=== PATIENT | female | born 1990 | race Caucasian/White ===

== ENCOUNTER 2019-07-02 05:46 | Inpatient (IN) | payer OTHER ==
[2019-07-02] MEDS ORDERED: Acetaminophen 500 MG TAB PO PRN (06:11)
[2019-07-02] MEDS ORDERED: Docusate 100 MG CAP PO PRN (06:11)
[2019-07-02] MEDS ORDERED: Diphenoxylate HCl/Atropine Tablet PO PRN ×2 (06:11)
[2019-07-02] MEDS ORDERED: Promethazine HCl 25 MG/ML VIAL IM PRN ×2 (06:11→08:40)
[2019-07-02] MEDS ORDERED: Ibuprofen 800 MG TAB PO PRN (06:11)
[2019-07-02] MEDS ORDERED: Misoprostol 200 MCG TAB PR PRN (06:11)
[2019-07-02] MEDS ORDERED: Lidocaine 1% (PF) 30 ML VIAL SC PRN (06:11)
[2019-07-02] MEDS ORDERED: Butorphanol Tartrate 1 MG/ML VIAL SLOW IVP PRN (06:11)
[2019-07-02] MEDS ORDERED: HYDROcodone/Acetaminophen 5/325 mg Tablet PO PRN ×2 (06:11)
[2019-07-02] MEDS ORDERED: Ondansetron PF 4 MG/2 ML Vial IVP PRN ×3 (06:11→14:22)
[2019-07-02] MEDS ORDERED: NS w/ Oxytocin 10 units 500 ML IV SCH ×2 (06:11)
[2019-07-02] MEDS ORDERED: NS / Oxytocin 40 units/1000ml 1,000 ML IV PRN (06:11)
[2019-07-02] MEDS ORDERED: hydrALAZINE 20 MG/ML VIAL SLOW IVP PRN ×2 (06:11→14:22)
[2019-07-02 06:42] LABS: Hemoglobin 12.2 g/dL (12.0-16.0); Mean Corpuscular HGB CONC 34.5 g/dL (32.0-36.0); Mean Corpuscular Hemoglobin 32.1 pg (27.0-31.0); Mean Corpuscular Volume 92.9 fL (78.0-98.0); Mean Platelet Volume 8.1 fL (7.4-10.4); Platelet Count 162 thou/uL (130-400); RBC Distribution Width 12.5 % (11.5-14.5); White Blood Cell (WBC) Count 8.7 thou/uL (4.8-10.8)
[2019-07-02 06:49] VITALS: BMI 29.2
[2019-07-02] MEDS: Lactated Ringer's 1,000 ML IV SCH ×2 (06:50→15:22)
[2019-07-02 07:21] LABS: HBSAg Index 0.25 S/CO (0-0.99); Hep B Surf Ag Non-Reactive S/CO (NonReactive); Syphilis Antibody Nonreactive (Nonreactive); Syphilis Antibody Index 0.04 S/CO (<1.00 Non-Reactive)
[2019-07-02] MEDS ORDERED: Fentanyl 4 mcg/Bup 0.1% Cadd 100 ML ONE ×2 (07:48→13:51)
[2019-07-02] MEDS ORDERED: Bupivacaine 0.5% 10 ML VIAL ONE (08:15)
[2019-07-02] MEDS ORDERED: Fentanyl 100 MCG/2 ML VIAL ONE (08:15)
[2019-07-02] MEDS ORDERED: Bupivacaine 0.25% 10 ML VIAL EPIDURAL SCH (08:40)
[2019-07-02] MEDS ORDERED: EPHEDRINE 25 MG/5 ML SYRINGE SLOW IVP PRN (08:40)
[2019-07-02] MEDS ORDERED: Naloxone HCl 0.4 mg/ml Vial IVP PRN ×2 (08:40)
[2019-07-02] MEDS ORDERED: Lactated Ringer's 500 ML IV PRN (08:40)
[2019-07-02] MEDS ORDERED: Fentanyl 100 MCG/2 ML VIAL I-THECAL ONE (08:40)
[2019-07-02] MEDS ORDERED: Acetaminophen 325 MG TAB PO PRN (08:40)
[2019-07-02] MEDS ORDERED: diphenhydrAMINE 50 MG/ML VIAL IVP PRN (08:40)
[2019-07-02] MEDS ORDERED: Communication Order-Pharmacy FS PRN (08:45)
[2019-07-02] MEDS ORDERED: Fentanyl 4 mcg/Bupivacaine 0.1% Cassette 100 ML EPIDURAL SCH (08:45)
[2019-07-02] MEDS ORDERED: Calcium Carbonate 500 MG ChewTAB PO PRN (09:52)
[2019-07-02] MEDS ORDERED: NS / Oxytocin 40 units/1000ml 1,000 ML ONE (13:49)
[2019-07-02] MEDS ORDERED: Lidocaine 1% (PF) 30 ML VIAL ONE (13:49)
[2019-07-02] MEDS ORDERED: Misoprostol 200 MCG TAB VAG PRN (14:22)
[2019-07-02] MEDS ORDERED: Benzocaine-Menthol 82.5 ML CAN TOP PRN (14:22)
[2019-07-02] MEDS ORDERED: diphenhydrAMINE 25 MG CAP PO PRN (14:22)
[2019-07-02] MEDS ORDERED: Lanolin Ointment 7 GM TUBE TOP PRN (14:22)
[2019-07-02] MEDS ORDERED: Preparation H Ointment 28 GM TUBE PR PRN (14:22)
[2019-07-02] MEDS ORDERED: Zolpidem Tartrate 5 MG TAB PO PRN (14:22)
[2019-07-02] MEDS ORDERED: Adacel (T-DAP) 0.5 ML SYRINGE IM ONE (14:22)
[2019-07-02] MEDS ORDERED: Milk Of Magnesia 30 ML UDCUP PO PRN (14:22)
[2019-07-02] MEDS ORDERED: Bisacodyl 10 MG SUPP PR PRN (14:22)
[2019-07-02] MEDS ORDERED: Acetaminophen/Codeine 30-300mg Tablet PO PRN (14:22)
[2019-07-02] MEDS ORDERED: NS / Oxytocin 40 units/1000ml 1,000 ML IV SCH (14:30)
[2019-07-02] MEDS: Acetaminophen/Codeine 30-300mg Tablet PO PRN ×2 (17:38→23:01)
[2019-07-02] MEDS: Ferrous Sulfate 325 MG TAB PO SCH (18:09)
[2019-07-02] MEDS: Ibuprofen 800 MG TAB PO SCH (22:17)
[2019-07-02] MEDS: Docusate Calcium (SURFAK) 240 MG CAP PO SCH (22:17)
[2019-07-03] MEDS: Acetaminophen/Codeine 30-300mg Tablet PO PRN ×4 (03:07→15:36)
[2019-07-03] MEDS: Ibuprofen 800 MG TAB PO SCH ×2 (05:21→13:03)
[2019-07-03 06:06] LABS: Hemoglobin 10.3 g/dL (12.0-16.0); Mean Corpuscular HGB CONC 34.4 g/dL (32.0-36.0); Mean Corpuscular Hemoglobin 31.7 pg (27.0-31.0); Mean Corpuscular Volume 92.3 fL (78.0-98.0); Mean Platelet Volume 8.1 fL (7.4-10.4); Platelet Count 151 thou/uL (130-400); RBC Distribution Width 12.6 % (11.5-14.5); Red Blood Cell (RBC) Count 3.24 mill/uL (4.20-5.40); White Blood Cell (WBC) Count 11.3 thou/uL (4.8-10.8)
[2019-07-03] MEDS: Docusate Calcium (SURFAK) 240 MG CAP PO SCH (07:02)
[2019-07-03] MEDS: Ferrous Sulfate 325 MG TAB PO SCH ×2 (07:42→13:28)
[2019-07-03 07:59] VITALS: TEMP 98.8
[2019-07-03] MEDS ORDERED: Prenatal Vitamin 1 TAB PO SCH (09:00)
[2019-07-03 12:11] VITALS: BP 106/65
== END 2019-07-03 16:55 | disposition home or self-care (01) | DRG 807 ==
LOC: L&D 05:46 → 3SW 17:07 → EDSTATUS 07-07 07:51
PROVIDERS: ADMIT Obstetrics & Gynecology; ATTEND Obstetrics & Gynecology
PROC: 10E0XZZ Delivery of Products of Conception, External Approach (ICD-10-PCS; principal; 2019-07-02)
PROC: 0KQM0ZZ Repair Perineum Muscle, Open Approach (ICD-10-PCS; 2019-07-02)
PROC: 3E033VJ Introduction of Other Hormone into Peripheral Vein, Percutaneous Approach (ICD-10-PCS; 2019-07-02)
DX: O70.1 Second degree perineal laceration during delivery (principal); Z37.0 Single live birth; Z3A.39 39 weeks gestation of pregnancy
CPT/HCPCS: 36415; 51702; 85027; 86780; 86850; 86900; 86901; 87340; J2001; J2590; J3010; J3490